=== PATIENT | female | born 1965 | race Caucasian/White ===

== ENCOUNTER 2017-10-29 14:55 | Day surgery (SDC) | payer OTHER ==
[2017-10-29] MEDS ORDERED: LIDOCAINE 100 MG SYRINGE (16:54)
[2017-10-29] MEDS ORDERED: PROPOFOL 40 ML (16:54)
[2017-10-29] MEDS ORDERED: FENTAnyl 50 MCG/ML VIAL (16:54)
== END 2017-10-29 18:45 | disposition home or self-care (01) ==
LOC: GIL 14:55
DX: Z12.11 Encounter for screening for malignant neoplasm of colon (principal); K21.9 Gastro-esophageal reflux disease without esophagitis; K29.60 Other gastritis without bleeding; K57.90 Diverticulosis of intestine, part unspecified, without perforation or abscess without bleeding; K64.8 Other hemorrhoids
CPT/HCPCS: 43239; 87081; 88305